=== PATIENT | female | born 1940 | race Caucasian/White ===

== ENCOUNTER 2019-04-22 11:13 | Emergency (ER) | payer OTHER, SELFPAY ==
[2019-04-22 11:17] VITALS: BP 143/71; PULSE 85; RESP 16; TEMP 37.1; O2SAT 99
--- NOTE | 2019-04-22 11:45 | ED.GENADUL_ITS ---
Discharge Plan Disposition Patient Disposition: HOME Condition: Improving Discharge Details Chief Complaint: RespSymp Clinical Impression: Sinusitis, acute, Acute bronchitis Primary Care Provider: Elba Hussein ED Provider: Yahaira Shepherd Home Meds and New Rx's Prescriptions: New amoxicillin-pot clavulanate [Augmentin] 875-125 mg tablet 1 tab PO BID 7 Days Qty: 14 RF: 0 methylprednisolone [Medrol (Trace)] 4 mg tablets,dose pack See Rx Instructions .ROUTE .COMPLEX Qty: 21 RF: 0 Continued spironolactone 25 mg Tablet 25 mg PO DAILY RF: 0 Discharge Instructions Instructions: Sinusitis (ED), Acute Bronchitis (ED) Additional Instructions: Use the albuterol inhaler as needed and directed for shortness of breath, coughing or wheezing. Take the antibiotics until finished. If you have no relief or worsening of symptoms, you can start the steroids. You will receive a call from care management regarding a follow-up appointment with the primary care doctor within 1 to 2 weeks. Return immediately to the emergency department if you develop any worsening or new concerning symptoms. Discharge Data Discharge Date/Time-TO BE ENTERED AT DEPARTURE: 04/22/19 14:35 Discharge Physician: Yahaira Shepherd Medical Decision Making 79-year-old female with a history of osteoporosis and hypertension who presents with nasal congestion, left ear pain, left upper teeth pain, cough and shortness of breath for the past week. Normal ENT exam. Scattered wheezing throughout. Left maxillary sinus tenderness. Presentation appears likely consistent with sinus infection and/or bronchitis. Will give albuterol neb treatment. Patient is requesting chest x-ray. She had recent travel from [place] 3 weeks ago, but she denies any leg pain or swelling, normal heart rate, normal oxygen saturation and history presentation not consistent with PE. She has infectious URI symptoms and no complaint of chest pain and history presentation not consistent with ACS. 1230 --patient feels minimally better after breathing treatment. She appears comfortable, laughing and talking with in room and appears in no acute distress. Chest x-ray negative. Patient states she feels good to go home. We will send home with a prescription for Augmentin for likely sinus infection which can cover for pneumonia if this develops. We will also send with albuterol inhaler. Patient is hesitant to take steroids. We will send home with a prescription for Medrol Dosepak if her symptoms do not improve or worsen. Pt placed on care management list for f/u pcp appointment as she is in the area until June. Instructed to return if worse. Medical Records Medical records reviewed: Yes I reviewed the patient's medical records. Imaging Data Radiologic Study: Radiologist's impression: XR Chest, 2 Views EXAM DATE/TIME: 04/22/2019 12:19 PM CLINICAL HISTORY: 79 years old, female; Cough and shortness of breath TECHNIQUE: Imaging protocol: XR of the chest, 2 views. COMPARISON: No relevant prior studies available. FINDINGS: Lungs: Unremarkable. No consolidation. Pleural space: Unremarkable. No pleural effusion. No pneumothorax. Heart/Mediastinum: Unremarkable. No cardiomegaly. Bones/joints: Unremarkable. IMPRESSION: No acute findings. HPI General Mode of arrival: ambulatory . Date/Time Provider Initiated Documentation: 04/22/19 11:22 . Limitations to Documentation: no limitations . Information obtained by: patient . HPI Narrative: Patient is an 79-year-old female with history of hypertension osteoarthritis who presents with cough with occasional green sputum, shortness of breath, nasal congestion with green mucus, left-sided jaw and teeth pain, left ear pain and left-sided facial pain and headache for the past week. She states her symptoms started with laryngitis 1 week ago and then progressed. She has been taking Advil and NyQuil as needed without relief. She denies any recent antibiotics. She states that she drove from [place] 3 weeks ago but denies any leg pain or swelling, chest pain, or recent surgeries. She denies any fever, rash, urinary symptoms. She states she has been sleeping and drinking well but eating less than usual. She has not taken any medications today. Related Data Home Medications Medication Instructions Recorded Confirmed amoxicillin-pot clavulanate 1 tab PO BID 7 Days #14 tab 04/22/19 04/22/19 [Augmentin] methylprednisolone [Medrol (Trace)] See Rx Instructions .ROUTE 04/22/19 04/22/19 .COMPLEX #21 dose pk spironolactone 25 mg PO DAILY 04/22/19 04/22/19 Previous Rx's Medication Instructions Recorded amoxicillin-pot clavulanate 1 tab PO BID 7 Days #14 tab 04/22/19 [Augmentin] methylprednisolone [Medrol (Trace)] See Rx Instructions .ROUTE 04/22/19 .COMPLEX #21 dose pk Allergies Allergy/AdvReac Type Severity Reaction Status Date / Time codeine AdvReac Intermediate Nausea Unverified 04/22/19 21:09 General Stated Complaint: RespSymp KARIN: 3 Review of Systems Review of Systems All systems reviewed & are unremarkable except as noted in HPI and below Constitutional Reports as per HPI, Denies chills, Denies fever(s) and Reports headache(s) Eyes Denies blurry vision ENT Denies dizziness, Reports otalgia, Reports facial pain, Reports headache(s), Reports nasal congestion, Reports nasal discharge, Denies sore throat and Denies throat swelling Cardiovascular Denies chest pain and Reports dyspnea Respiratory Reports cough and Reports dyspnea Gastrointestinal Denies abdominal pain, Denies diarrhea and Denies vomiting Genitourinary Denies hematuria and Denies dysuria Musculoskeletal Denies back pain and Denies numbness Integumentary/Breasts Denies lesions and Denies rash Neurologic Denies dizziness, Reports headache(s), Denies focal weakness and Denies numbness Allergic/Immunologic Denies throat swelling [facility] Medical History HTN (hypertension) (Chronic) Osteoarthritis (Chronic) Surgical History H/O shoulder surgery (Chronic) History of appendectomy (Chronic) History of tonsillectomy (Chronic) Social History Smoking/Tobacco Use Status: Never Alcohol Intake: never Drug use: Never Do you feel safe at home: Yes Do you feel safe in your relationship?: Yes Exam Const General: cooperative and healthy appearing Orientation: alert and awake [facility] Head: normal to inspection Ears: hearing grossly normal bilaterally, external ears normal and TM's normal bilaterally General nose exam: external nose normal Face and sinus: tenderness on the left maxilla Mouth: oral mucosae normal Teeth and gingiva: dentition normal Throat: posterior oropharynx normal Eyes General: appearance normal, both eyes and all related structures Eyelids: eyelids normal Pupils: PERRL EOM: EOM intact bilaterally Neck Neck: normal visual inspection Lymphatic: no lymphadenopathy noted Chest Chest: normal inspection of the chest Resp Effort & Inspection: normal respiratory effort and able to speak in complete sentences Auscultation: wheezes scattered wheezes Cardio Rate: regular rate Rhythm: regular rhythm GI Inspection: normal to inspection Palpation: soft, not firm, no guarding, no hepatosplenomegaly, no masses and nontender Auscultation: normal bowel sounds Skin General skin exam: no rashes or lesions noted Neuro General: alert and awake Cognition: normal cognition Speech: speech normal Gait: normal gait Motor: muscle tone normal throughout Sensory Exam: no sensory deficits noted Extrem General: normal to inspection, full ROM, normal capillary refill and no edema Psych Appearance: grossly normal Mental Status: mental status grossly normal Speech and Movement: speech and movement normal Affect: normal affect Thought Process: normal Course Vital Signs Temperature 98.8 F 04/22/19 11:17 Pulse 85 04/22/19 11:17 Respiratory Rate 16 04/22/19 11:17 Blood Pressure 143/71 H 04/22/19 11:17 Pulse Oximetry 99 04/22/19 11:17 Temperature 98.8 F 04/22/19 11:17 Temperature Source Temporal Artery Scan 04/22/19 11:17 Pulse 85 04/22/19 11:17 Respiratory Rate 16 04/22/19 11:17 Respiratory Effort Non-Labored 04/22/19 11:19 Blood Pressure 143/71 H 04/22/19 11:17 Blood Pressure Position Sitting 04/22/19 11:17 Pulse Oximetry 99 04/22/19 11:17 Oxygen Delivery Method Room Air 04/22/19 11:17 Oxygen Flow Rate 0 04/22/19 11:17 Pain Level 0 04/22/19 11:17
--- NOTE | 2019-04-22 12:18 | DI.RAD_ITS ---
SYMPTOM/DIAGNOSIS: COUGH, SOB, R/O PNEUMONIA PA AND LATERAL CHEST: 04/22 The heart is normal in size. The lungs are clear. The mediastinal structures and pleura appear intact. CONCLUSION: Normal chest.
[2019-04-22 13:08] VITALS: PULSE 85; RESP 16; RESP 8; O2SAT 99
[2019-04-22] MEDS: Albuterol/Ipratropium 3 ML UPD VIAL UPD (13:08)
[2019-04-22] MEDS: Albuterol HFA 8 GM 60 PUFF INH IH (13:08)
[2019-04-22] MEDS: Inhaler, Assist Device 1 EACH MC (13:10)
--- NOTE | 2019-04-22 13:42 | DI.VRAD_ITS ---
EXAM: XR Chest, 2 Views EXAM DATE/TIME: 04/22/2019 12:19 PM CLINICAL HISTORY: 79 years old, female; Cough and shortness of breath TECHNIQUE: Imaging protocol: XR of the chest, 2 views. COMPARISON: No relevant prior studies available. FINDINGS: Lungs: Unremarkable. No consolidation. Pleural space: Unremarkable. No pleural effusion. No pneumothorax. Heart/Mediastinum: Unremarkable. No cardiomegaly. Bones/joints: Unremarkable. IMPRESSION: No acute findings. Dictated and Authenticated by: Carolyn Barrow MD. Ordering:YANIV Syed MD
== END 2019-04-22 14:35 | disposition home or self-care (01) ==
PROVIDERS: Emergency Provider Physician Assistant; PCP Nurse Practitioner Family
DX: J01.90 Acute sinusitis, unspecified (principal); J20.9 Acute bronchitis, unspecified; I10 Essential (primary) hypertension
CPT/HCPCS: 94640; 99283; 71046; J7620

== ENCOUNTER 2019-04-22 20:57 | Emergency (ER) | payer OTHER, SELFPAY ==
[2019-04-22 21:05] VITALS: BP 151/85; PULSE 82; RESP 16; TEMP 36.6; O2SAT 100
--- NOTE | 2019-04-22 21:33 | W.ED.GENAD ---
Discharge Plan Disposition Patient Disposition: HOME Condition: Fair Discharge Details Chief Complaint: EyeProblem Clinical Impression: Acute bacterial conjunctivitis Primary Care Provider: None,None ED Provider: Alethea Alva Home Meds and New Rx's Prescriptions: Continued spironolactone 25 mg Tablet 25 mg PO DAILY RF: 0 amoxicillin-pot clavulanate [Augmentin] 875-125 mg tablet 1 tab PO BID 7 Days Qty: 14 RF: 0 methylprednisolone [Medrol (Trace)] 4 mg tablets,dose pack See Rx Instructions .ROUTE .COMPLEX Qty: 21 RF: 0 Discharge Instructions Instructions: Erythromycin (Into the eye), Conjunctivitis (ED) Additional Instructions: Encourage hydration. Please continue with antibiotics for your upper respiratory infection as prescribed. Please begin the erythromycin ophthalmic ointment as directed by nursing staff tonight. Please apply half an inch to your left eye 4 times daily for the next 5 days. If you develop fever/chills, increased pain, visual changes, spreading of the redness or the new/worsening symptoms please seek care urgently once again. Warm washcloth to keep eye clean. Wash hands frequently. Please follow-up with primary care in 1 week if not improve Medical Decision Making Patient is an 79-year-old female, accompanied by her , with chief complaint of left eye discharge. She was seen earlier today and was diagnosed with sinusitis and bronchitis and placed on Augmentin and Medrol Dosepak. Patient reports that since leaving, she has began developing some left eye irritation. Her has a similar illness and is also had eye discharge. The time of exam now, the left eye is injected with thick purulent discharge that comes back frequently. She has no pain with extraocular movements. She does have some mild swelling and pinkness to the left upper lid. States that the eye is slightly achy but no true pain, no change in the vision. Denies any fevers. Patient will be treated for bacterial conjunctivitis with erythromycin ophthalmic ointment. Advised to continue with the plan made earlier today in regards to the upper respiratory illness symptoms. She and I discussed return precautions. Advised that she follow-up with primary care, referral for primary care is Robbie been sent today. All of her questions and concerns were addressed and she is in agreement this plan. HPI General Mode of arrival: ambulatory. Date/Time Provider Initiated Documentation: 04/22/19 21:23. Limitations to Documentation: no limitations. Information obtained by: patient, family (accompanied by ) and RN notes reviewed. History of Present Illness 79 year old F presents to the emergency department with the chief complaint of left eye discharge, described as moderate, with intensity rated at 5. Quality is described as aching, and is localized to the eyes (left). Patient reports no radiation. Patient started experiencing this hour(s) and it has been constant. No relieving factors improve symptom(s), No exacerbating factors reported . Patient notes other (URI symptoms). Patient did receive the following treatments prior to arrival, none Related Data Home Medications Medication Instructions Recorded Confirmed amoxicillin-pot clavulanate 1 tab PO BID 7 Days #14 tab 04/22/19 04/22/19 [Augmentin] methylprednisolone [Medrol (Trace)] See Rx Instructions .ROUTE 04/22/19 04/22/19 .COMPLEX #21 dose pk spironolactone 25 mg PO DAILY 04/22/19 04/22/19 Previous Rx's Medication Instructions Recorded amoxicillin-pot clavulanate 1 tab PO BID 7 Days #14 tab 04/22/19 [Augmentin] methylprednisolone [Medrol (Trace)] See Rx Instructions .ROUTE 04/22/19 .COMPLEX #21 dose pk Allergies Allergy/AdvReac Type Severity Reaction Status Date / Time codeine AdvReac Intermediate Nausea Unverified 04/22/19 21:09 General Stated Complaint: EyeProblem KARIN: 4 Review of Systems Constitutional Reports as per HPI, Reports chills, Reports fever(s) and Denies headache(s) Eyes Reports as per HPI, Denies blurry vision, Denies change in vision, Reports eye discharge, Denies floaters, Reports irritation, Reports itchy eyes, Reports eye pain (states she has some achiness in the eye) and Reports requires corrective lenses (does not wear contacts) ENT Reports as per HPI, Denies headache(s), Reports nasal congestion, Reports nasal discharge, Reports sinus pain and Reports sinus pressure Cardiovascular Reports as per HPI, Denies chest pain and Denies dyspnea Respiratory Reports as per HPI, Reports cough and Denies dyspnea Gastrointestinal Reports as per HPI, Denies abdominal pain, Denies change in bowel habits, Denies nausea and Denies vomiting Integumentary/Breasts Reports as per HPI and Denies rash Neurologic Reports as per HPI and Denies headache(s) Allergic/Immunologic Reports itchy eyes [facility] Medical History HTN (hypertension) (Chronic) Osteoarthritis (Chronic) Surgical History H/O shoulder surgery (Chronic) History of appendectomy (Chronic) History of tonsillectomy (Chronic) Social History Smoking/Tobacco Use Status: Never Alcohol Intake: never Drug use: Never Do you feel safe at home: Yes Do you feel safe in your relationship?: Yes Exam Const General: cooperative, healthy appearing, comfortable, no acute distress, well developed and well groomed Nutritional Appearance: average body habitus and well nourished Orientation: alert and awake [place] Head: normal to inspection Ears: hearing grossly normal bilaterally General nose exam: external nose normal Face and sinus: sinuses tender (left maxillary sinus tenderness) Mouth: oral mucosae normal Eyes Alignment and Position: alignment normal Eyelids: eyelid abnormality left upper eyelid erythema (mild erythema and swelling) Conjunctivae: conjunctival abnormality left conjunctival injection Sclera: scleral abnormality left scleral exudate purulent and scleral injection diffuse Pupils: PERRL and normal by confrontation EOM: EOM intact bilaterally Neck Neck: normal visual inspection, full ROM, no lymphadenopathy and no meningeal signs Resp Effort & Inspection: normal respiratory effort and able to speak in complete sentences Skin General skin exam: erythema (a above) Neuro General: alert and awake Cognition: normal cognition Speech: speech normal Gait: normal gait Psych Appearance: grossly normal and well kempt Mental Status: mental status grossly normal Speech and Movement: speech and movement normal Course Vital Signs Temperature 36.6 C 04/22/19 21:05 Pulse 82 04/22/19 21:05 Respiratory Rate 16 04/22/19 21:05 Blood Pressure 151/85 H 04/22/19 21:05 Pulse Oximetry 100 04/22/19 21:05 Temperature 36.6 C 04/22/19 21:05 Pulse 82 04/22/19 21:05 Respiratory Rate 16 04/22/19 21:05 Respiratory Effort Non-Labored 04/22/19 21:08 Blood Pressure 151/85 H 04/22/19 21:05 Blood Pressure Position Supine 04/22/19 21:05 Pulse Oximetry 100 04/22/19 21:05 Oxygen Delivery Method Room Air 04/22/19 21:05 Oxygen Flow Rate 0 04/22/19 21:05 Pain Level 5 04/22/19 21:05
--- NOTE | 2019-04-22 21:37 | ED.GENADUL_ITS ---
Discharge Plan Disposition Patient Disposition: HOME Condition: Fair Discharge Details Chief Complaint: EyeProblem Clinical Impression: Acute bacterial conjunctivitis Primary Care Provider: None,None ED Provider: Alethea Alva Home Meds and New Rx's Prescriptions: Continued spironolactone 25 mg Tablet 25 mg PO DAILY RF: 0 amoxicillin-pot clavulanate [Augmentin] 875-125 mg tablet 1 tab PO BID 7 Days Qty: 14 RF: 0 methylprednisolone [Medrol (Trace)] 4 mg tablets,dose pack See Rx Instructions .ROUTE .COMPLEX Qty: 21 RF: 0 Discharge Instructions Instructions: Erythromycin (Into the eye), Conjunctivitis (ED) Additional Instructions: Encourage hydration. Please continue with antibiotics for your upper respiratory infection as prescribed. Please begin the erythromycin ophthalmic ointment as directed by nursing staff tonight. Please apply half an inch to your left eye 4 times daily for the next 5 days. If you develop fever/chills, increased pain, visual changes, spreading of the redness or the new/worsening symptoms please seek care urgently once again. Warm washcloth to keep eye clean. Wash hands frequently. Please follow-up with primary care in 1 week if not improve Medical Decision Making Patient is an 79-year-old female, accompanied by her , with chief complaint of left eye discharge. She was seen earlier today and was diagnosed with sinusitis and bronchitis and placed on Augmentin and Medrol Dosepak. Patient reports that since leaving, she has began developing some left eye irritation. Her has a similar illness and is also had eye discharge. The time of exam now, the left eye is injected with thick purulent discharge that comes back frequently. She has no pain with extraocular movements. She does have some mild swelling and pinkness to the left upper lid. States that the eye is slightly achy but no true pain, no change in the vision. Denies any fevers. Patient will be treated for bacterial conjunctivitis with erythromycin ophthalmic ointment. Advised to continue with the plan made faye ier today in regards to the upper respiratory illness symptoms. She and I discussed return precautions. Advised that she follow-up with primary care, referral for primary care is Robbie been sent today. All of her questions and concerns were addressed and she is in agreement this plan. HPI General Mode of arrival: ambulatory . Date/Time Provider Initiated Documentation: 04/22/19 21:23 . Limitations to Documentation: no limitations . Information obtained by: patient, family (accompanied by ) and RN notes reviewed . History of Present Illness 79 year old F presents to the emergency department with the chief complaint of left eye discharge, described as moderate, with intensity rated at 5. Quality is described as aching, and is localized to the eyes (left). Patient reports no radiation. Patient started experiencing this hour(s) and it has been constant. No relieving factors improve symptom(s), No exacerbating factors reported . Patient notes other (URI symptoms). Patient did receive the following treatments prior to arrival, none Related Data Home Medications Medication Instructions Recorded Confirmed amoxicillin-pot clavulanate 1 tab PO BID 7 Days #14 tab 04/22/19 04/22/19 [Augmentin] methylprednisolone [Medrol (Trace)] See Rx Instructions .ROUTE 04/22/19 04/22/19 .COMPLEX #21 dose pk spironolactone 25 mg PO DAILY 04/22/19 04/22/19 Previous Rx's Medication Instructions Recorded amoxicillin-pot clavulanate 1 tab PO BID 7 Days #14 tab 04/22/19 [Augmentin] methylprednisolone [Medrol (Trace)] See Rx Instructions .ROUTE 04/22/19 .COMPLEX #21 dose pk Allergies Allergy/AdvReac Type Severity Reaction Status Date / Time codeine AdvReac Intermediate Nausea Unverified 04/22/19 21:09 General Stated Complaint: EyeProblem KARIN: 4 Review of Systems Constitutional Reports as per HPI, Reports chills, Reports fever(s) and Denies headache(s) Eyes Reports as per HPI, Denies blurry vision, Denies change in vision, Reports eye discharge, Denies floaters, Reports irritation, Reports itchy eyes, Reports eye pain (states she has some achiness in the eye) and Reports requires corrective lenses (does not wear contacts) ENT Reports as per HPI, Denies headache(s), Reports nasal congestion, Reports nasal discharge, Reports sinus pain and Reports sinus pressure Cardiovascular Reports as per HPI, Denies chest pain and Denies dyspnea Respiratory Reports as per HPI, Reports cough and Denies dyspnea Gastrointestinal Reports as per HPI, Denies abdominal pain, Denies change in bowel habits, Denies nausea and Denies vomiting Integumentary/Breasts Reports as per HPI and Denies rash Neurologic Reports as per HPI and Denies headache(s) Allergic/Immunologic Reports itchy eyes [facility] Medical History HTN (hypertension) (Chronic) Osteoarthritis (Chronic) Surgical History H/O shoulder surgery (Chronic) History of appendectomy (Chronic) History of tonsillectomy (Chronic) Social History Smoking/Tobacco Use Status: Never Alcohol Intake: never Drug use: Never Do you feel safe at home: Yes Do you feel safe in your relationship?: Yes Exam Const General: cooperative, healthy appearing, comfortable, no acute distress, well developed and well groomed Nutritional Appearance: average body habitus and well nourished Orientation: alert and awake [facility] Head: normal to inspection Ears: hearing grossly normal bilaterally General nose exam: external nose normal Face and sinus: sinuses tender (left maxillary sinus tenderness) Mouth: oral mucosae normal Eyes Alignment and Position: alignment normal Eyelids: eyelid abnormality left upper eyelid erythema (mild erythema and swelling) Conjunctivae: conjunctival abnormality left conjunctival injection Sclera: scleral abnormality left scleral exudate purulent and scleral injection diffuse Pupils: PERRL and normal by confrontation EOM: EOM intact bilaterally Neck Neck: normal visual inspection, full ROM, no lymphadenopathy and no meningeal signs Resp Effort & Inspection: normal respiratory effort and able to speak in complete sentences Skin General skin exam: erythema (a above) Neuro General: alert and awake Cognition: normal cognition Speech: speech normal Gait: normal gait Psych Appearance: grossly normal and well kempt Mental Status: mental status grossly normal Speech and Movement: speech and movement normal Course Vital Signs Temperature 36.6 C 04/22/19 21:05 Pulse 82 04/22/19 21:05 Respiratory Rate 16 04/22/19 21:05 Blood Pressure 151/85 H 04/22/19 21:05 Pulse Oximetry 100 04/22/19 21:05 Temperature 36.6 C 04/22/19 21:05 Pulse 82 04/22/19 21:05 Respiratory Rate 16 04/22/19 21:05 Respiratory Effort Non-Labored 04/22/19 21:08 Blood Pressure 151/85 H 04/22/19 21:05 Blood Pressure Position Supine 04/22/19 21:05 Pulse Oximetry 100 04/22/19 21:05 Oxygen Delivery Method Room Air 04/22/19 21:05 Oxygen Flow Rate 0 04/22/19 21:05 Pain Level 5 04/22/19 21:05
[2019-04-22] MEDS: Erythromycin Ophth Oint 3.5 GM TUBE OS (21:38)
--- NOTE | 2019-05-02 10:47 | NUR.NOTE ---
Nursing Note: At the request of [facility] the MD note was faxed to them for follow up. Lupe Norton.
== END 2019-04-22 21:40 | disposition home or self-care (01) ==
PROVIDERS: Emergency Provider Physician Assistant
DX: H10.32 Unspecified acute conjunctivitis, left eye (principal)
CPT/HCPCS: 99283

== ENCOUNTER 2020-04-04 15:45 | Outpatient (REF) | payer OTHER, SELFPAY ==
[2020-04-05 18:27] LABS: COVID-19 RT-PCR UVMMC Result Negative (Negative)
== END 2020-04-04 16:05 ==
LOC: NCHCN 15:45
PROVIDERS: PCP Nurse Practitioner Family; Visit Provider Physician Assistant
DX: J06.9 Acute upper respiratory infection, unspecified (principal)
CPT/HCPCS: U0003

== ENCOUNTER 2020-06-03 09:52 | Outpatient (REF) | payer OTHER, SELFPAY ==
[2020-06-03 20:01] LABS: Anion Gap 9.7 mmol/L (3-11); BUN 21 mg/dL (7-18); CO2 27.3 mmol/L (21.0-32.0); CREATININE 0.71 mg/dL (0.55-1.02); Calcium 8.9 mg/dL (8.5-10.1); Chloride 108 mmol/L (98-107); Glucose 97 mg/dL (74-106); Potassium 4.3 mmol/L (3.5-5.1); Sodium 145 mmol/L (136-145)
== END 2020-06-03 10:12 ==
LOC: NCHCN 09:52
PROVIDERS: PCP Nurse Practitioner Family; Visit Provider Nurse Practitioner Family
DX: I10 Essential (primary) hypertension (principal)
CPT/HCPCS: 80048

== ENCOUNTER → 2022-05-10 13:49 | Outpatient (CLI) | payer OTHER, SELFPAY ==
--- NOTE | 2022-05-10 13:40 | DI.RAD_ITS ---
Exam(s) XR LUMBAR SPINE COMPLETE EXAM: XR LUMBAR SPINE COMPLETE CLINICAL HISTORY: COCCYDYNIA, M53.3. TECHNIQUE: 2D digital imaging was performed. COMPARISON: No exams were available for comparison FINDINGS: Five views No evidence of compression fracture. Disc space narrowing at L5-S1 level noted. Mild degenerative a nterolisthesis L4 upon L5 due to facet arthropathy at this level. There is no scoliosis. Sacroiliac joints appear age-appropriate. Bone density is age-appropriate. No osseous lesions evident. IMPRESSION: As above. See separate sacral report. DATA REPOSITORY: RADIATION DOSE DELIVERED:
--- NOTE | 2022-05-10 13:45 | DI.RAD_ITS ---
Exam(s) XR SACRUM EXAM: XR SACRUM CLINICAL HISTORY: COCCYDYNIA, M53.3. TECHNIQUE: 2D digital imaging was performed. COMPARISON: No exams were available for comparison FINDINGS: Two views: Sacrum AP and lateral There is age-related osteopenia. No obvious sacral fracture evident. Sacroiliac joints appear age-a ppropriate. The lower sacrum-coccyx is quite osteopenic and difficult to evaluate but appears age-ap propriate. There is disc space narrowing at L5-S1 level. L4-5 level exhibits normal disc height but mild degenerative anterolisthesis is noted of L4 upon L5. IMPRESSION: Osteopenia. No obvious sacral fracture. DATA REPOSITORY: RADIATION DOSE DELIVERED:
== END ==
PROVIDERS: PCP Nurse Practitioner Family; Visit Provider Nurse Practitioner Family
DX: M53.3 Sacrococcygeal disorders, not elsewhere classified (principal); M85.88 Other specified disorders of bone density and structure, other site; M43.16 Spondylolisthesis, lumbar region
CPT/HCPCS: 72110; 72220

== ENCOUNTER 2023-04-16 12:36 | Outpatient (CLI) | payer MEDICARE, SELFPAY ==
--- NOTE | 2023-04-16 12:51 | DI.RAD_ITS ---
Exam(s) XR KNEE LT 3V AP,LAT,FREDDIE EXAM: XR KNEE LT 3V AP,LAT,FREDDIE CLINICAL HISTORY: Knee pain, left, acute. TECHNIQUE: 2D digital imaging was performed of the left knee. Three images were obtained. AP, late ral and PA tunnel views were obtained. COMPARISON: No exams were available for comparison FINDINGS: BONES: No acute fracture is present. No bony destructive lesion is seen. JOINTS: The knee is normally aligned. No joint effusion is seen. SOFT TISSUE: Atherosclerosis is present. There is soft tissue swelling of the knee medially. IMPRESSION: No acute fracture or dislocation. DATA REPOSITORY: RADIATION DOSE DELIVERED:
--- NOTE | 2023-04-16 13:14 | DI.VRAD_ITS ---
PROCEDURE INFORMATION: Exam: XR Left Knee Exam date and time: 04/16/2023 12:45 PM Age: 83 years old Clinical indication: Other: Knee pain, left, acute TECHNIQUE: Imaging protocol: Radiologic exam of the left knee. Views: 3 views. COMPARISON: No relevant prior studies available. FINDINGS: Bones/joints: No fracture or dislocation. No joint effusion. Soft tissues: Soft tissue swelling of the medial aspect of the knee. Vasculature: Atherosclerotic disease. Varicose veins along the medial and posterior aspect of the knee. IMPRESSION: 1. No evidence for acute bony injury. If clinical symptoms persist recommend followup film in 7-10 days. 2. Soft tissue swelling and varicose veins. Consider ultrasound for further evaluation of possible DVT. Dictated and Authenticated by: Ruth Thurman MD. Ordering:FELICIA RIVERS MD
== END 2023-04-16 12:56 ==
LOC: DI 12:37
PROVIDERS: PCP Nurse Practitioner Family; Visit Provider Nurse Practitioner Family
DX: M25.562 Pain in left knee (principal)
CPT/HCPCS: 73562

== ENCOUNTER 2023-05-06 09:27 | Outpatient (CLI) | payer MEDICARE, SELFPAY ==
--- NOTE | 2023-05-06 | DI.RAD_ITS ---
Exam(s) XR CHEST 2V PA LATERAL XR THORACIC SPINE COMPLETE EXAM: XR CHEST 2V PA LATERAL CLINICAL HISTORY: BACK PAIN UPPER M54.89 CHEST PAIN R07.89 TECHNIQUE: 2D digital imaging was performed. COMPARISON: CR XR CHEST 2V PA LATERAL from 04/22/2019 CR XR THORACIC SPINE COMPLETE from 05/06/2023 FINDINGS: HEART: Normal size. Aorta: Not dilated. PULMONARY VASCULATURE: Normal. LUNGS: Clear. PLEURAL SPACE: No pleural effusion or pneumothorax. BONE:No evidence of thoracic compression fractures. No visible rib fractures. Minimal degenerative changes noted in the spine. Alignment is normal. IMPRESSION: No acute abnormality. DATA REPOSITORY: RADIATION DOSE DELIVERED:
== END 2023-05-06 09:47 ==
LOC: DI 10:12
PROVIDERS: PCP Nurse Practitioner Family; Visit Provider Family Medicine
DX: M54.89 Other dorsalgia (principal); R07.89 Other chest pain
CPT/HCPCS: 71046; 72072

== ENCOUNTER → 2023-06-08 03:31 | Outpatient (CLI) | payer MEDICARE, SELFPAY ==
--- NOTE | 2023-06-08 | DI.US_ITS ---
Exam(s) US PELVIS TRANSVAGINAL EXAM: US PELVIS TRANSVAGINAL CLINICAL HISTORY: PELVIC PAIN, R10.2, PERIODIC SHOOTING PAIN IN VAGINA, SOME BLOATING. TECHNIQUE: Transabdominal pelvic ultrasound was performed using standard protocol. The patient elec louis to forego the transvaginal portion of the examination. COMPARISON: No exams were available for comparison FINDINGS: UTERUS: Position: Anteverted. Size: 5.5 long by 2.0 AP by 4.1 transverse cm Endometrium: 0.2 cm. Normal for patient's menstrual status. Myometrium: Unremarkable. There is a 0.8 cm calcification in the lower uterine segment which may repr esent a calcified fibroid. Cervix: Unremarkable. OVARIES: The ovaries were not visualized on this transabdominal examination. No suspicious adnexal m asses are seen sonographically. CUL-DE-SAC: Free fluid: None. Other: None. IMPRESSION: 1. Transabdominal only examination at the request of the patient. 2. Unremarkable uterus with normal endometrial stripe. 3. The ovaries were not visualized on this examination. DATA REPOSITORY:
== END ==
PROVIDERS: PCP Nurse Practitioner Family; Visit Provider Family Medicine
DX: R10.2 Pelvic and perineal pain (principal)
CPT/HCPCS: 76857